=== PATIENT | male | born 1945 | race Two or more races ===

== ENCOUNTER 2021-05-13 20:17 | Emergency (ER) | payer MEDICARE, OTHER ==
[~2021-05-13] VITALS: Ht 172.7 cm; Wt 98.9 kg
--- NOTE | 2021-05-13 20:24 | NUR ---
Pt brought back to room 3 via ambulance for low HGB level. Pt is AAOx0, in persistent vegative states. Good color, temp and appearance. VSS, no pulses were obtainable. Pt looks off into space and is completely nonverbal or nonreactionary.
[2021-05-13 21:14] LABS: MEAN CORPUSCULAR HEMOGLOBIN 30.6 uug (23.8-33.4); MEAN CORPUSCULAR VOLUME 96.2 fL (73.0-96.2); PLATELET COUNT (AUTO) 181 K/uL (152-348)
[2021-05-13 21:15] LABS: HEMATOCRIT 18.4 % (36.7-47.1)
[2021-05-13 21:33] LABS: EOSINOPHILS % (MANUAL) 8 % (0-8); LYMPHOCYTES % (MANUAL) 14 % (20-40); MONOCYTES % (MANUAL) 6 % (2-10); NEUTROPHILS % (MANUAL) 72 % (42-75)
[2021-05-13] MEDS ORDERED: EPOE4000 SQ (22:37)
[2021-05-13] MEDS ORDERED: OMEP20CA15 GT (22:37)
[2021-05-13] MEDS ORDERED: FOLI1TAB94 GT (22:37)
[2021-05-13] MEDS ORDERED: MIDO10TA GT (22:37)
[2021-05-13] MEDS ORDERED: ARGI500P3 GT (22:37)
[2021-05-13] MEDS ORDERED: ACET-2154 GT (22:37)
[2021-05-13] MEDS ORDERED: FOLI0.8T2 GT (22:37)
[2021-05-13] MEDS ORDERED: ASCO-340 GT (22:37)
[2021-05-13] MEDS ORDERED: CARV3.122 GT (22:37)
[2021-05-13] MEDS ORDERED: AMIN30LI2 GT (22:37)
[2021-05-13] MEDS ORDERED: INSU100V28 (22:37)
[2021-05-13] MEDS ORDERED: ZINC220C6 GT (22:37)
[2021-05-13] MEDS ORDERED: ASPI81TA31 GT (22:37)
[2021-05-13] MEDS ORDERED: VANC50SO3 PO (22:37)
[2021-05-13] MEDS ORDERED: SEVE800T8 GT (22:37)
--- NOTE | 2021-05-13 22:40 | NUR ---
One unit PRBC transfusion initiated at exactly 2240. Pretranfusion VS stable and PE WNL. Pt has controlled afib with freq PVCs and periodic short pauses at 75bpm. Afebrile, no alteration in condition after starting transfusion. Pt tolerating well.
--- NOTE | 2021-05-14 00:35 | NUR ---
Pt completed transfusion without incident or reaction. No reaction present, pt appearnce and color has markly improved. VSS, PE WNL, pt is still very swollen and edemitous. Neuro check the same as initial assessment. EDMD Dr. Bennett wrote DC instructions and requested an ambulance for transfer back to pt's rehab facility.
--- NOTE | 2021-05-14 00:40 | NUR ---
Several ambulance complanies called for pt to be transfered back to his rehab facility, however, all the complanies called had ETAs around [id number]. Finally, it was determined that the best option was to use the [employer] that brought pt to ED.
--- NOTE | 2021-05-14 00:45 | NUR ---
Called [employer] to schedule a cook pickled meat time for pt. ETA given was between 0800 and 0900. functional support analyst time and ride was confirmed for 0830 on 05/14/21. Assured pt's comfort and informed that he will be waiting here in ED until his ride arrives some time around 8 to 9 am.
--- NOTE | 2021-05-14 09:20 | NUR ---
Called [employer] following up on the transport for pt back to rehab facility. ETA was 0830. Dispatcher said that new ETA is 1030 and that unit was en-route.
--- NOTE | 2021-05-14 10:30 | NUR ---
records management clerk and transport RT at bedside to transfer pt from [facility] and prepare pt for tranport back to facility. Pt has good color, temp and appearance, VSS, PE WNL. Report given to transport RT. Pt loaded up without difficulty and on his way back to his home facility.
[2021-05-14 11:20] VITALS: BP 139/82
--- NOTE | 2021-05-14 11:21 | NUR ---
DISCHARGED VIA AMBULANCE WITH PLASTIC MOLDER; REPORT TO FACILITY.
== END 2021-05-14 11:05 ==
LOC: ER 20:34
DX: D64.9 Anemia, unspecified (principal); F09 Unspecified mental disorder due to known physiological condition; E11.22 Type 2 diabetes mellitus with diabetic chronic kidney disease; N18.6 End stage renal disease; Z99.2 Dependence on renal dialysis; Z91.011 Allergy to milk products; Z91.013 Allergy to seafood
CPT/HCPCS: 36415; 85007; 85025; 86850; 86900; 86901; 86920; 99285; P9016; 70030-TC; A4663; J7050; P9021